=== PATIENT | female | born 1945 | race Caucasian/White ===

== ENCOUNTER 2016-12-16 05:08 | Observation (INO) | payer OTHER ==
[~2016-12-16] VITALS: Ht 157.5 cm; Wt 74.2 kg
[~2016-12-16 05:08] MED LIST: CALCIUM600 M1 PO; HYDROCODON-ACE1 EAC7 PO; KEFLEX500 MG PO; LISINOPRIL5 MG PO; PERCOCET 5/31 TABLET PO; PRAVASTATIN SOD40 MG PO; VITAMIN D400 UNIT PO
[2016-12-16 05:59] LABS: BASOPHIL COUNT 0.1 K/uL (0-0.1); EOSINOPHIL (%) 1.5 % (0-5); EOSINOPHIL COUNT 0.1 K/uL (0-0.3); HEMATOCRIT 46.4 % (36.0-46.0); IMMATURE GRANULOCYTE (%) 0.5 % (0.0-0.7); IMMATURE GRANULOCYTE COUNT 0.1 K/uL; INSTRUMENT ABS NEUTROPHIL CT 5.1 K/uL; LYMPHOCYTE COUNT 2.9 K/uL (1.0-2.8); MCH 31.7 PG (29.0-34.0); MCV 96.3 FL (83-99); MEAN PLAT.VOLUME 11.1 uM^3 (9.5-12.4); MONOCYTE (%) 9.9 % (3-12); MONOCYTE COUNT 0.9 K/uL (0-0.8); NEUTROPHIL (%) 56.1 % (45-76); NEUTROPHIL COUNT 5.1 K/uL (1.8-6.4); PLATELET COUNT 206 K/uL (156-360); RBC DIS.WIDTH-CV 13.4 % (11.8-14.6); RED BLOOD COUNT 4.82 M/uL (3.80-5.20); WHITE BLOOD COUNT 9.1 K/uL (4.1-10.2)
[2016-12-16 06:08] LABS: CHLORIDE 109 mEq/L (99-109); POTASSIUM 4.6 mEq/L (3.7-5.4); SODIUM 141 mEq/L (136-147)
[2016-12-16 06:09] LABS: MAGNESIUM 1.8 mg/dL (1.3-2.7)
[2016-12-16 06:11] LABS: GLUCOSE 105 mg/dL (70-99)
[2016-12-16 06:12] LABS: ANION GAP 13 MEQ/L (2-14)
[2016-12-16 06:13] LABS: TOTAL BILIRUBIN 0.6 mg/dL (0.0-1.0)
[2016-12-16 06:14] LABS: ALKALINE PHOSPHATASE 66 IU/L (3-129)
[2016-12-16 06:15] LABS: GFR ESTIMATE (CALCULATED) > 59 mL/min/
[2016-12-16 06:16] LABS: ADD MIUA? YES; BILIRUBIN NEGATIVE; BLOOD MODERATE; COLOR YELLOW ((YELLOW)); GLUCOSE (STRIP) NEGATIVE; KETONES 5; LEUKOCYTES NEGATIVE; NITRITE NEGATIVE; PROTEIN (STRIP) 30; SPECIFIC GRAVITY 1.023 (1.000-1.030); UROBILINOGEN 0.2 MG/DL (0.2-1.0)
[2016-12-16 06:16] LABS: UREA NITROGEN (BUN) 11 mg/dL (9-23)
[2016-12-16 06:18] LABS: TROP-I INTERPRETATION NEGATIVE; TROPONIN-I < 0.01 ng/mL (0.0-0.30)
[2016-12-16 06:20] LABS: BACTERIA RARE /HPF; EPITHELIAL CELLS 2+ /HPF; MUCUS 1+ /LPF; UCUL ADDED? NO; WHITE BLOOD CELLS 0-5 /HPF (0-5)
[2016-12-16 11:01] VITALS: BP 140/62
[2016-12-16 20:00] VITALS: BP 176/84
[2016-12-17] VITALS: BP 160/82
[2016-12-17 04:02] VITALS: BP 121/58
[2016-12-17 07:42] VITALS: BP 150/70; BP 157/69
[2016-12-17 10:26] LABS: ANION GAP 9 MEQ/L (2-14); CHLORIDE 108 MEQ/L (99-109); GFR ESTIMATE (CALCULATED) > 59 mL/min/; GLUCOSE 137 mg/dL (70-99); POTASSIUM 4.2 MEQ/L (3.7-5.4); SAMPLE HEMOLYSIS CHECK 0; SAMPLE ICTERIC CHECK 0; SAMPLE LIPEMIA CHECK 0; SODIUM 140 MEQ/L (136-147); UREA NITROGEN (BUN) 15 mg/dL (9-23)
[2016-12-17 11:06] VITALS: BP 162/72
[2016-12-17] MEDS ORDERED: ENDOCET 5-3251 EACH PO (13:54)
[2016-12-17] MEDS ORDERED: PREDNISONE20 MG PO (13:54)
[2016-12-17] MEDS ORDERED: CYCLOBENZAPRINE5 MG PO (13:54)
[2016-12-17] MEDS ORDERED: VENTOLIN HFA18 GM IH (13:54)
[2016-12-17] MEDS ORDERED: AZITHROMYCIN500 M1 PO (13:54)
== END 2016-12-17 15:04 | disposition home or self-care (01) ==
LOC: EME 05:08 → EDOF 09:51 → 5WEST 09:51 → EDOF 09:51 → ENRESERV 09:55 → 5WEST 10:52
PROVIDERS: Emergency Medicine; Internal Medicine
DX: M54.5 Low back pain (principal); M54.6 Pain in thoracic spine; R06.02 Shortness of breath; R06.2 Wheezing; J44.9 Chronic obstructive pulmonary disease, unspecified; F17.210 Nicotine dependence, cigarettes, uncomplicated; I10 Essential (primary) hypertension; E78.5 Hyperlipidemia, unspecified; Z91.14 Patient's other noncompliance with medication regimen; Z90.49 Acquired absence of other specified parts of digestive tract; Z90.710 Acquired absence of both cervix and uterus; Z87.442 Personal history of urinary calculi
CPT/HCPCS: 71020; 71275; 74176; 80048; 80053; 81003; 83735; 83880; 84484; 85025; 94640; 94640 76; 94799; 99202; 99281; 99285; G0378; J1200; J1650; J1885; J2270; J2360; J2405; J3010; J7030; J7050; J7512